=== PATIENT | male | born 1995 | race Caucasian/White ===

== ENCOUNTER 2022-07-11 11:49 | Emergency (ER) | payer OTHER, BC, SELFPAY ==
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
--- NOTE | ~2022-07-11 | XR_ITS ---
EXAMINATION: XR WRIST, RIGHT CLINICAL INFORMATION: Right wrist pain. COMPARISON: None TECHNIQUE: PA, lateral, and oblique views of the right wrist. FINDINGS: The bones and soft tissues are normal. No fracture. Alignment is anatomic with normal joint spaces. No erosions or abnormal soft tissue calcifications. XR/XR wrist RT min 3V IMPRESSION: Unremarkable right wrist.
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
[2022-07-11 12:07] VITALS: BP 112/74; PULSE 96; RESP 17; TEMP 36.9; O2SAT 98; BMI 25.1
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
[2022-07-11 13:37] LABS: MANUAL DIFF FLAG NO
[2022-07-11 13:39] LABS: Basophils Absolute Auto 0.1 X10*3/uL (0.0-0.2); Basophils Percent Auto 0.3 % (0-2); Eosinophils Absolute Auto 0.1 X10*3/uL (0.0-0.4); Eosinophils Percent Auto 0.5 % (0-4); Hematocrit 46.2 % (42.0-52.0); Hemoglobin 15.8 g/dl (14.0-18.0); Imm Gran Abs Auto 0.13 X10*3/uL (0.00-0.03); Imm Gran Pct Auto 0.7 % (0.0-0.4); Lymphocytes Absolute Auto 1.2 X10*3/uL (1.2-4.9); Lymphocytes Percent Auto 6.9 % (20-40); Mean Corpuscular HGB Conc 34.2 g/dl (31.0-36.0); Mean Corpuscular Hemoglobin 29.9 pg (27.0-33.0); Mean Corpuscular Volume 87.3 fL (80.0-98.0); Monocytes Percent Auto 5.6 % (2-11); Neutrophils Absolute Auto 15.2 x10*3/uL (2.0-8.3); Platelet Count 367 X10*3/uL (160-400); Red Blood Count 5.29 X10*6/uL (4.60-5.80); White Blood Count 17.7 X10*3/uL (4.8-10.8)
[2022-07-11 14:11] LABS: Alanine Aminotransferase 17 U/L (0-40); Albumin Level 4.9 g/dL (3.5-5.0); Alkaline Phosphatase 73 U/L (39-117); Anion Gap 16 (12-20); Aspartate Amino Transferase 21 U/L (5-37); Blood Urea Nitrogen 14 mg/dL (9-16); Calcium 10.2 mg/dL (8.4-10.2); Carbon Dioxide 26 mmol/L (22-29); Chloride 103 mmol/L (96-108); Creatinine Clr Calc Pharmacy 117.7; Estimated Glomerular Filt Rate > 60; Glucose Random 105 mg/dL (60-115); Magnesium 1.9 mg/dL (1.6-2.6); Sodium 141 mmol/L (135-145); Total Protein 7.8 g/dL (6.5-8.0)
[2022-07-11 14:26] LABS: Bilirubin Total 0.5 mg/dL (0.0-1.0)
[2022-07-11] MEDS: iohexoL 350 MG/ML 100 ML INFUS..BTL IV (15:34)
[2022-07-11 16:06] VITALS: BP 111/61; PULSE 94; RESP 16; TEMP 36.7; O2SAT 97
--- NOTE | 2022-07-11 16:07 | PC.NURSE ---
patient a&ox3, vss, denies pain/discomfort at this time, family at bedside, will continue to monitor
== END 2022-07-11 17:18 | disposition home or self-care (01) ==
PROVIDERS: Physician Assistant; Emergency Provider Emergency Medicine
DX: S06.0X0A Concussion without loss of consciousness, initial encounter (principal); S13.4XXA Sprain of ligaments of cervical spine, initial encounter; R04.0 Epistaxis; M25.531 Pain in right wrist; M54.2 Cervicalgia; M54.6 Pain in thoracic spine; R10.2 Pelvic and perineal pain; V49.00XA Driver injured in collision with unspecified motor vehicles in nontraffic accident, initial encounter; Y93.9 Activity, unspecified; Y92.410 Unspecified street and highway as the place of occurrence of the external cause; Y99.9 Unspecified external cause status; Z79.899 Other long term (current) drug therapy
CPT/HCPCS: 36415; 70450; 71260; 72125; 73110; 74177; 80053; 83735; 85025; 99284; Q9967